=== PATIENT | female | born 1960 | race Caucasian/White ===

== ENCOUNTER 2020-05-22 23:50 | Emergency (ER) | payer OTHER ==
[2020-05-23 00:03] VITALS: TEMP 98.3; BMI 41.2
--- NOTE | 2020-05-23 00:32 | PDOC ---
History of Present Illness - General Chief Complaint: Chest Pain Stated Complaint: CHEST PAIN Time Seen by Provider: 05/22/20 23:51 - History of Present Illness Initial Comments: 05/23/20 00:28 59 F long-time smoker with h/o ADHD and HLD presenting to ED with chest pain. Pt states that she was working outside vigorously today. She then came home and ate dinner, and shortly after began to experience midsternal chest pressure. Pt notes that she has a history of GERD and ate her dinner rather quickly, but this sensation is different from her typical GERD. Pt denies SOB. Denies N/V. Denies radiation of pain anywhere else. Pain is not exertional or pleuritic. Pt denies any recent travel/immobilization. No leg swelling. Past History - Medical History Allergies/Adverse Reactions: Allergies Allergy/AdvReac Type Severity Reaction Status Date / Time acetaminophen [From Vicodin] Allergy Verified 05/22/20 23:52 hydrocodone [From Vicodin] Allergy Verified 05/22/20 23:52 Home Medications: Ambulatory Orders Amphetamine 05/22/20 Fexofenadine HCl [Arlette Allergy] 180 mg PO DAILY 05/22/20 Montelukast Na [Singulair -] 10 mg PO HS 05/22/20 Asthma: No (ENVIRONMENTAL ALLERGIES) COPD: No GI Disorders: Yes (GERD) - Psycho-Social/Smoking History Smoking History: Current every day smoker Number of Cigarettes Smoked Daily: 30 Information on smoking cessation initiated: Yes Review of Systems - Review of Systems Comments:: 05/23/20 00:30 "GENERAL/CONSTITUTIONAL: No fever or chills. No weakness. HEAD, EYES, EARS, NOSE AND THROAT: No change in vision. No ear pain or discharge. No sore throat. CARDIOVASCULAR: + chest pain, no shortness of breath, no loss of consciousness RESPIRATORY: No cough, wheezing, or hemoptysis. GASTROINTESTINAL: No nausea, vomiting, diarrhea or constipation. GENITOURINARY: No dysuria, frequency, or change in urination. MUSCULOSKELETAL: No joint or muscle swelling or pain. No neck or back pain. SKIN: No rash NEUROLOGIC: No vertigo, no change in strength/sensation. ENDOCRINE: No increased thirst. No abnormal weight change. HEMATOLOGIC/LYMPHATIC: No anemia, easy bleeding, or history of blood clots. ALLERGIC/IMMUNOLOGIC: No hives or skin allergy. *Physical Exam - Vital Signs Last Vital Signs Temp Pulse Resp BP Pulse Ox 98.3 F 80 15 137/65 99 05/22/20 23:55 05/23/20 03:00 05/23/20 03:00 05/23/20 03:00 05/23/20 03:00 - Physical Exam 05/23/20 00:30 "GENERAL: Awake, alert, and fully oriented, in no acute distress. HEAD: No signs of trauma EYES: PERRLA, EOMI, sclera anicteric, conjunctiva clear ENT: Auricles normal inspection, hearing grossly normal, nares patent, oropharynx clear without exudates. Moist mucosa NECK: Nontender, no stepoffs, Normal ROM, supple, no lymphadenopathy, JVD, or masses LUNGS: Breath sounds equal, clear to auscultation bilaterally. No wheezes, and no crackles HEART: Regular rate and rhythm, normal S1 and S2, no murmurs, rubs or gallops ABDOMEN: Soft, nontender, normoactive bowel sounds. No guarding, no rebound. No masses EXTREMITIES: Normal range of motion, no edema. No clubbing or cyanosis. No cords, erythema, or tenderness NEUROLOGICAL: Cranial nerves II through XII intact. 5/5 strength and sensation in all extremities, Normal speech, normal gait, normal cerebellar function SKIN: Warm, Dry, normal turgor, no rashes or lesions noted. Heart Score/ECG Review - History History: Slightly suspicious - Electrocardiogram EKG: Normal - Age Age: 45-65 - Risk Factors Risk Factors Heart Score: Yes Hx Hypercholesterolemia, Yes Smoking History, Yes Hx Obesity Based on the list above the patient has:: >/=3 risk factors or Hx atherosclerotic disease - Troponin Troponin: </= normal limit - Score Heart Score - Total: 3 - ECG Impressions Comment:: 05/23/20 00:32 NSR, no MILLI/STDs, no TWIs, axis wnl, intervals wnl, rate 87 ED Treatment Course - LABORATORY CBC & Chemistry Diagram: 05/23/20 00:30 05/23/20 00:30 - ADDITIONAL ORDERS Additional order review: Laboratory Results 05/23/20 05/23/20 05/23/20 03:20 00:30 00:30 PT with INR 12.30 INR 1.04 PTT (Actin FS) 32.1 Sodium 140 Potassium 3.7 Chloride 103 Carbon Dioxide 29 Anion Gap 8 BUN 18.6 H Creatinine 1.1 Est GFR (CKD-EPI)AfAm 62.75 Est GFR (CKD-EPI)NonAf 54.14 Random Glucose 94 Calcium 9.4 Total Bilirubin 0.5 AST 20 ALT 23 Alkaline Phosphatase 98 Creatine Kinase 247 H Creatine Kinase Index 1.1 CK-MB (CK-2) 2.9 Troponin I < 0.02 < 0.02 B-Natriuretic Peptide 51.2 Total Protein 7.7 Albumin 3.8 Lipase 158 05/23/20 00:30 RBC 4.77 MCV 91.9 MCHC 34.0 RDW 13.3 MPV 9.3 Neutrophils % 70.4 Lymphocytes % 19.4 Monocytes % 8.2 Eosinophils % 1.5 Basophils % 0.5 - RADIOLOGY Radiology Studies Ordered: Category Date Time Status CHEST X-RAY PORTABLE* [RAD] Stat Radiology 05/23/20 00:20 Taken - Medications Given in the ED: ED Medications Discontinued Medications Generic Name Dose Route Start Last Admin Trade Name Freq PRN Reason Stop Dose Admin Al Hydroxide/Mg Hydroxide 30 ml 05/23/20 00:35 05/23/20 00:42 Mylanta Oral Suspension - PO 05/23/20 00:36 30 ml ONCE ONE Administration Aspirin 325 mg 05/23/20 00:35 05/23/20 00:42 Asa - PO 05/23/20 00:36 325 mg ONCE ONE Administration Famotidine/Sodium Chloride 20 mg in 50 mls @ 100 mls/hr 05/23/20 00:35 0902/04 00:47 Pepcid 20 Mg Premixed Ivpb - IVPB 05/23/20 01:04 100 mls/hr ONCE ONE Administration Nitroglycerin 0.4 mg 05/23/20 01:00 05/23/20 01:07 Nitrostat - SL 05/23/20 01:01 0.4 mg ONCE ONE Administration Medical Decision Making - Medical Decision Making 05/23/20 00:30 59 F with chest pain. EKG with no ischemic changes. - Labs, trops - CXR 05/23/20 03:10 Labs wnl, trop negative x 1 CXR clear on my read EKG repeated with no changes Pending 2nd trop 05/23/20 04:37 Trop negative x2 Pt reassessed - feels much better now, denies chest pain Pt is well appearing, with normal vitals. Clinically stable for DC at this time. I discussed the physical exam findings, ancillary test results and final diagnoses with the patient. I answered all of the patient's questions. The patient was satisfied with the care received and felt comfortable with the discharge plan and treatment plan. The patient agrees to follow up with the primary care physician within 24-72 hours. Discharge - Discharge Information Problems reviewed: Yes Clinical Impression/Diagnosis: Chest pressure Condition: Stable Disposition: HOME - Follow up/Referral Referrals: Sherman Villafana [Primary Care Provider] - - Patient Discharge Instructions Patient Printed Discharge Instructions: DI for Chest Pain Additional Instructions: Your bloodwork, EKG, and chest x ray were all normal today. However, this does NOT rule out all serious medical conditions. You must follow up with a tailor fitter within 1 week for further evaluation of your chest pain. If you experience any recurrent chest pain, shortness of breath, nausea, vomiting, or any other concerning symptoms, return to the ER immediately. Please also consider quitting smoking and reducing the amount of ADHD medication you take. - Post Discharge Activity
[2020-05-23] MEDS ORDERED: ASPIRIN 325 MG TABLET PO ONE (00:35)
[2020-05-23] MEDS ORDERED: FAMOTIDINE 20 MG/50 ML IVPB 20 MG/50 ML MG IVPB ONE ×2 (00:35→00:43)
[2020-05-23] MEDS ORDERED: MAG HYDROX/AL HYDROX/SIMETH 30 ML UNIT-DOSE CUP PO ONE (00:35)
[2020-05-23] MEDS ORDERED: MAG HYDROX/AL HYDROX/SIMETH 30 ML UNIT-DOSE CUP ONE (00:41)
[2020-05-23] MEDS ORDERED: ASPIRIN 325 MG TABLET ONE (00:41)
[2020-05-23] MEDS ORDERED: NITROGLYCERIN SUBLINGUAL 1/150 0.4 MG TAB SL ONE (01:00)
[2020-05-23] MEDS ORDERED: NITROGLYCERIN SUBLINGUAL 1/150 0.4 MG TAB ONE (01:05)
[2020-05-23 01:07] VITALS: PULSE 80
[2020-05-23 02:05] LABS: ALBUMIN 3.8 g/dl (3.4-5.0); ALK PHOS 98 U/L (45-117); ANION GAP 8 MMOL/L (8-16); BASO % 0.5 % (0-2.0); BILIRUBIN,TOTAL 0.5 mg/dL (0.2-1); BLOOD UREA NITROGEN 18.6 mg/dL (7-18); CALCIUM 9.4 mg/dL (8.5-10.1); CHLORIDE 103 mmol/L (98-107); CO2 29 mmol/L (21-32); CREATININE 1.1 mg/dL (0.55-1.3); EOS % 1.5 % (0-4.5); GLUCOSE,RANDOM 94 mg/dL (74-106); HEMATOCRIT 43.8 % (32.4-45.2); HEMOGLOBIN 14.9 GM/dL (10.7-15.3); LIPASE 158 U/L (73-393); LYMPH % 19.4 % (8-40); MCH 31.3 pg (25.7-33.7); MEAN CELL VOLUME 91.9 fl (80-96); MEAN PLT VOLUME 9.3 fl (7.5-11.1); MONO % 8.2 % (3.8-10.2); N-TERMINAL BNP 51.2 pg/ml (5-125); NEUT % 70.4 % (42.8-82.8); PLATELET COUNT 243 K/MM3 (134-434); POTASSIUM 3.7 mmol/L (3.5-5.1); RBC 4.77 M/mm3 (3.60-5.2); RDW 13.3 % (11.6-15.6); SGOT/AST 20 U/L (15-37); SGPT/ALT 23 U/L (13-61); SODIUM 140 mmol/L (136-145); TOT PROT 7.7 g/dl (6.4-8.2); WHITE BLOOD COUNT 12.1 K/mm3 (4.0-10.0)
[2020-05-23 02:34] LABS: INR 1.04 (0.83-1.09); PROTHROMBIN TIME (PATIENT) 12.3 SEC (9.7-13.0)
[2020-05-23 02:37] LABS: ACTIVATED PTT 32.1 SECONDS (25.2-36.5)
[2020-05-23 03:41] VITALS: BP 137/65
--- NOTE | 2020-05-23 14:59 | EKG ---
Test Reason : Blood Pressure : / mmHG Vent. Rate : 087 BPM Atrial Rate : 087 BPM P-R Int : 126 ms QRS Dur : 100 ms QT Int : 368 ms P-R-T Axes : 066 -04 051 degrees QTc Int : 442 ms NORMAL SINUS RHYTHM INCOMPLETE RIGHT BUNDLE BRANCH BLOCK BORDERLINE ECG NO PREVIOUS ECGS AVAILABLE Confirmed by Patrick Roberts ([id number]) on 05/23/2020 2:59:26 PM Referred By: MD LUCERO Confirmed By:Patrick Roberts
--- NOTE | 2020-05-23 14:59 | EKG ---
Test Reason : Blood Pressure : / mmHG Vent. Rate : 077 BPM Atrial Rate : 077 BPM P-R Int : 122 ms QRS Dur : 100 ms QT Int : 412 ms P-R-T Axes : 069 -01 040 degrees QTc Int : 466 ms NORMAL SINUS RHYTHM INCOMPLETE RIGHT BUNDLE BRANCH BLOCK BORDERLINE ECG WHEN COMPARED WITH ECG OF 23-MAY-2020 00:29, NO SIGNIFICANT CHANGE WAS FOUND Confirmed by Patrick Roberts ([id number]) on 05/23/2020 2:59:25 PM Referred By: MD LUCERO Confirmed By:Patrick Roberts
== END 2020-05-23 04:42 | disposition home or self-care (01) ==
LOC: FER 23:50
PROC: 3E033GC Introduction of Other Therapeutic Substance into Peripheral Vein, Percutaneous Approach (ICD-10-PCS; principal; 2020-05-22)
DX: R07.89 Other chest pain (principal)
CPT/HCPCS: 36415; 71045-TC-FY; 80053; 82550; 82553; 83690; 83880; 84484; 85025; 85610; 85730; 93005; 99284-25